=== PATIENT | female | born 1990 | race African-American/Black ===

== ENCOUNTER 2020-07-12 08:35 | Emergency (ER) | payer OTHER ==
[~2020-07-12] VITALS: Ht 172.7 cm; Wt 72.6 kg
--- NOTE | 2020-07-12 09:22 | EKG ---
[address] [address] ELECTROCARDIOGRAM REPORT Name: RAMIREZ CARVAJAL Room #: [facility].R.#: [id number] Admission: Attend Phys: Discharge: Date of : 89 Report #: [id number] [facility] ED Test Date: 2020-07-12 Test Time: 08:39:40 Pat Name: RAMIREZ CARVAJAL Department: Room: Gender: F Front Office Java Developer: rebekah : 1990 Requested By: Julian Alanis Order Number: [id number] MD: John Centeno Measurements Intervals [place] Rate: 74 P: 70 [place]: 175 QRS: 59 QRSD: 75 T: 33 QT: 356 QTc: 395 Interpretive Statements Sinus rhythm No previous ECG available for comparison Electronically Signed On 07-12-2020 9:22:45 ORDER CONTROL CLERK BLOOD BANK by John Centeno [email or web address] <ELECTRONICALLY SIGNED> By: John Centeno MD, [facility] 07/12/20 0922 0839 [id number] John Centeno MD, FACC /EPI
[2020-07-12 10:13] LABS: ABSOLUTE NEUTROPHILS 2.9 thou/uL (1.4-8.2); BASOPHILS 0.7 % (0.0-2.0); HEMATOCRIT 42.3 % (37.0-47.0); HEMOGLOBIN 14.1 gm/dL (12.0-15.0); LYMPHOCYTES 29.2 % (24.0-44.0); MCH 30.2 pg (26.0-34.0); MCHC 33.4 g/dL (28.0-37.0); MCV 90.5 fL (80.0-100.0); MONOCYTES 9.1 % (1.0-8.0); PLATELET COUNT 211 thou/uL (150-400); RBC 4.68 mil/uL (4.20-5.00); RDW 12.7 % (10.5-14.5); WBC 4.8 thou/uL (4.0-11.0)
[2020-07-12 10:25] LABS: ANION GAP 12 mmol/L (7-16); BUN 8 mg/dL (7-18); CALCIUM 9.2 mg/dL (8.5-10.1); CHLORIDE 106 mmol/L (98-107); CO2 23 mmol/L (21-32); GLUCOSE 83 mg/dL (74-106); POTASSIUM 3.4 mmol/L (3.5-5.1); SODIUM 141 mmol/L (136-145)
[2020-07-12 10:35] LABS: ALBUMIN 4.1 g/dL (3.4-5.0); DIRECT BILIRUBIN 0.1 mg/dL (<0.1-0.2); SGOT 21 U/L (15-37); SGPT 19 U/L (14-59); TOTAL BILIRUBIN 0.6 mg/dL (0.2-1.0); TOTAL PROTEIN 7.5 g/dL (6.4-8.2); TROPONIN-I <0.06 ng/mL (<0.06)
[2020-07-12 13:35] VITALS: BP 136/85
== END 2020-07-12 13:55 | disposition home or self-care (01) ==
LOC: ER 08:35
PROVIDERS: Emergency Medicine
DX: R07.89 Other chest pain (principal)

== ENCOUNTER → 2020-08-03 | Outpatient (CLI) | payer OTHER | LOC: LAB 08:33 | PROVIDERS: ATTEND Specialist | DX: Z20.822 Contact with and (suspected) exposure to COVID-19 (principal) ==